=== PATIENT | male | born 1980 | race African-American/Black ===

== ENCOUNTER 2023-11-26 09:28 | Inpatient (IN) | payer BC ==
[2023-11-26] VITALS (15 sets, daily range): BP systolic 107–161; BP diastolic 76–119; PULSE 121–145; RESP 16–30; TEMP 97.7
[~2023-11-26] VITALS: Ht 177.8 cm; Wt 76.3 kg
[2023-11-26] MEDS: LACTATED RINGERS 1,000 ML IV SCH (10:34)
[2023-11-26 10:43] LABS: HEMATOCRIT. 52.4 % (42.0-52.0); HEMOGLOBIN. 16.2 g/dL (14.0-18.0); MEAN CORPUSCULAR HEMOGLOBIN 30.9 pg (28.0-32.0); MEAN CORPUSCULAR HGB CONC 30.9 g/dL (31.0-37.0); MEAN CORPUSCULAR VOLUME 100.1 fL (80.0-94.0); MEAN PLATELET VOLUME 10.4 fl (7.4-10.4); PLATELET 432 x1000/uL (130-400); RED BLOOD CELL COUNT 5.23 mill/uL (4.7-6.1); RED CELL DISTRIBUTION WIDTH 16.1 % (11.6-14.6); WHITE BLOOD COUNT 15.6 x1000/uL (4.5-11.0)
[2023-11-26 10:49] LABS: ALANINE AMINOTRANSFERASE 31 IU/L (10-49); ALBUMIN 5.1 g/dL (3.2-4.8); ASPARTATE AMINOTRANSFERASE 14 IU/L (<34); BILIRUBIN TOTAL 0.3 mg/dL (0.1-1.0); CALCIUM 8.9 mg/dL (8.7-10.4); CHLORIDE 102 mEq/L (98-107); CREATININE 1.8 mg/dL (0.6-1.3); SODIUM 134 mEq/L (136-145); TROPONIN I HIGH SENSITIVITY 6 ng/L (3.0-53); UREA NITROGEN BLOOD 20 mg/dL (9-23)
[2023-11-26 10:54] LABS: CARBON DIOXIDE < 10 mEq/L (21-32); GLUCOSE 601 mg/dL (70-105)
[2023-11-26 10:59] LABS: DIFFERENTIAL COMMENT 1
[2023-11-26 11:47] LABS: BG BASE EXCESS -25.5 mmol/L (-2.0-2.0); BG CARBOXYHEMOGLOBIN 0.3 % (0.5-1.5); BG DEOXYHEMOGLOBIN 1.7 % (0.0-5.0); BG FRACTION INSPIRED OXYGEN 21; BG METHEMOGLOBIN 0.4 % (0.0-1.5); BG OXYGEN SATURATION 98.3 % (92.0-98.5); BG OXYHEMOGLOBIN 97.6 % (94.0-97.0); BG PCO2 11.4 mmHg (35.0-45.0); BG PH 7.036 (7.350-7.450); BG PO2 153.5 mmHg (75.0-100.0); BG SAMPLE SITE RIGHT RADIAL; BG TOTAL HEMOGLOBIN 17.4 g/dL (12.0-18.0); BG VENT MODE ROOM AIR
[2023-11-26] MEDS ORDERED: LACTATED RINGERS 1,000 ML IV SCH (12:00)
[2023-11-26 12:28] LABS: ANISOCYTOSIS 1+; PLATELET ESTIMATE INCREASED
[2023-11-26 12:43] LABS: CLARITY URINE CLEAR (CLEAR); COLOR URINE YELLOW (YELLOW); GLUCOSE URINE 3+ (NEGATIVE); KETONES URINE 4+ (NEGATIVE); LEUKOCYTE ESTERASE URINE NEGATIVE (NEGATIVE); NITRITE URINE NEGATIVE (NEGATIVE); OCCULT BLOOD URINE 1+ (NEGATIVE); PH URINE 5.5 (4.5-8.0); PROTEIN URINE 2+ (NEGATIVE); UROBILINOGEN URINE 0.2 E.U./dL (0.2-1.0)
[2023-11-26] MEDS ORDERED: BLOOD SUGAR DIAGNOSTIC STRIP TEST SCH (13:00)
[2023-11-26] MEDS ORDERED: KCL 20MEQ/100ML PREMIX 100 ML IV PRN ×2 (13:00→20:00)
[2023-11-26 13:12] LABS: WBC URINE 0-2 /hpf (0-2)
[2023-11-26 13:13] LABS: COARSE GRANULAR CASTS URINE 0-5 /lpf; FINE GRANULAR CASTS URINE 0-5 /lpf; RBC URINE 0-2 /hpf (0-2)
[2023-11-26 13:15] LABS: MUCUS URINE 1+ /lpf (NONE/TRACE)
[2023-11-26] MEDS ORDERED: GUAIFENESIN 200MG/10ML SUGAR FREE UDC PO PRN (13:15)
[2023-11-26] MEDS ORDERED: DOCUSATE SODIUM 100MG CAPSULE PO PRN (13:15)
[2023-11-26] MEDS ORDERED: DEXTROSE 50% WATER 50ML SYRINGE IV PRN ×2 (13:15→20:00)
[2023-11-26] MEDS ORDERED: ACETAMINOPHEN 325MG TABLET PO PRN (13:15)
[2023-11-26] MEDS ORDERED: IPRATROPIUM/ALBUTEROL 0.5-3(2.5)MG/3ML NEB HHN PRN (13:15)
[2023-11-26] MEDS ORDERED: ONDANSETRON HCL 4MG/2ML INJ IV PRN (13:15)
[2023-11-26] MEDS ORDERED: MAGNESIUM/ALUMINUM HYDROXIDE/SIMETHICONE 30ML UDC PO PRN (13:15)
[2023-11-26 13:16] LABS: BACTERIA URINE TRACE; SQUAMOUS EPITHELIAL CELL URINE RARE /lpf (RARE/1+)
[2023-11-26] MEDS ORDERED: DEXT 5%/0.9% NACL 1,000 ML IV SCH (13:30)
[2023-11-26] MEDS: THIAMINE HCL 100MG TABLET PO SCH (13:30)
[2023-11-26] MEDS: SODIUM CHLORIDE 0.9% 1,000 ML IV SCH (13:51)
[2023-11-26] MEDS: BLOOD SUGAR DIAGNOSTIC STRIP TEST SCH ×2 (13:51→20:10)
[2023-11-26] MEDS: INSULIN REGULAR (HUMULIN R) 300UNITS/3ML VIAL IV ONE (13:59)
[2023-11-26] MEDS: PANTOPRAZOLE SODIUM 40 MG/VIAL IV SCH (13:59)
[2023-11-26] MEDS: ENOXAPARIN 40MG/0.4ML SYR SUBCUT SCH (14:00)
[2023-11-26 17:32] LABS: CALCIUM 8.5 mg/dL (8.7-10.4); CHLORIDE 103 mEq/L (98-107); CREATININE 1.8 mg/dL (0.6-1.3); POTASSIUM 4.7 mEq/L (3.5-5.1); SODIUM 134 mEq/L (136-145); UREA NITROGEN BLOOD 19 mg/dL (9-23)
[2023-11-26 17:34] LABS: TROPONIN I HIGH SENSITIVITY 7 ng/L (3.0-53)
[2023-11-26 17:35] LABS: CHLORIDE 102 mEq/L (98-107); POTASSIUM 4.8 mEq/L (3.5-5.1); SODIUM 133 mEq/L (136-145)
[2023-11-26 17:41] LABS: CARBON DIOXIDE < 10 mEq/L (21-32); GLUCOSE 641 mg/dL (70-105)
[2023-11-26 17:42] LABS: CARBON DIOXIDE < 10 mEq/L (21-32)
[2023-11-26] MEDS ORDERED: SODIUM CHL 0.45% + KCL 20MEQ/L 1,000 ML IV SCH (18:30)
[2023-11-26] MEDS ORDERED: SODIUM PHOSPHATE 15 MMOL in SODIUM CHLORIDE 0.9% 245 ML IV PRN (20:00)
[2023-11-26] MEDS ORDERED: SODIUM CHLORIDE 0.9% 1,000 ML IV SCH (20:00)
[2023-11-26] MEDS ORDERED: MAGNESIUM 2 G PREMIX 100 ML IV PRN (20:00)
[2023-11-26] MEDS ORDERED: POTASSIUM CHLORIDE 40 MEQ in SODIUM CHLORIDE 0.9% 230 ML IV PRN (20:00)
[2023-11-26] MEDS: INSULIN REGULAR (DRIP) 100 UNITS in SODIUM CHLORIDE 0.9% 99 ML IV SCH (20:19)
[2023-11-26] MEDS: HYDRALAZINE 20MG/ML VIAL IV PRN (20:23)
[2023-11-26] MEDS: MELATONIN 3MG TABLET PO SCH (21:52)
[2023-11-26] MEDS: INSULIN REGULAR 100U/100ML PMX 100 ML IV SCH (22:32)
[2023-11-26] MEDS ORDERED: INSULIN REGULAR 100U/100ML PMX 100 ML IV SCH (22:42)
[2023-11-26 23:26] LABS: CHLORIDE 114 mEq/L (98-107); CREATININE 1.3 mg/dL (0.6-1.3); POTASSIUM 4.6 mEq/L (3.5-5.1); SODIUM 139 mEq/L (136-145); UREA NITROGEN BLOOD 26 mg/dL (9-23)
[2023-11-26 23:46] LABS: ETHANOL BLOOD < 10 mg/dL (<10); GLUCOSE 212 mg/dL (70-105)
[2023-11-26 23:49] LABS: CARBON DIOXIDE < 10 mEq/L (21-32)
[2023-11-26] MEDS: IOHEXOL-350 100 ML BOTTLE ONE (23:51)
[2023-11-27] VITALS (39 sets, daily range): BP systolic 106–151; BP diastolic 71–109; PULSE 83–128; RESP 14–22; TEMP 97.7–99.4
[2023-11-27 00:58] LABS: PHOSPHORUS 1.2 mg/dL (2.5-4.9)
[2023-11-27 01:15] LABS: TROPONIN I HIGH SENSITIVITY 19 ng/L (3.0-53)
[2023-11-27 01:33] LABS: CARBON DIOXIDE 11 mEq/L (21-32); CHLORIDE 117 mEq/L (98-107); CREATININE 1.2 mg/dL (0.6-1.3); GLUCOSE 179 mg/dL (70-105); POTASSIUM 4.5 mEq/L (3.5-5.1); SODIUM 139 mEq/L (136-145); UREA NITROGEN BLOOD 30 mg/dL (9-23)
[2023-11-27 01:36] LABS: CARBON DIOXIDE 10 mEq/L (21-32); CHLORIDE 116 mEq/L (98-107); POTASSIUM 4.4 mEq/L (3.5-5.1); SODIUM 139 mEq/L (136-145)
[2023-11-27] MEDS: METOCLOPRAMIDE HCL 10MG/2ML VIAL IV SCH (01:46)
[2023-11-27] MEDS: SODIUM PHOSPHATE 30 MMOL in DEXT 5% WATER 490 ML IV NR (03:10)
[2023-11-27] MEDS: DEXT 5%/0.9% NACL 1,000 ML IV SCH (07:55)
[2023-11-27 08:51] LABS: CALCIUM 8.8 mg/dL (8.7-10.4); CARBON DIOXIDE 14 mEq/L (21-32); CHLORIDE 117 mEq/L (98-107); CHOLESTEROL 130 mg/dL (<200); CREATININE 1.1 mg/dL (0.6-1.3); GLUCOSE 214 mg/dL (70-105); HDL CHOLESTEROL 51 mg/dL (>55); LDL CHOLESTEROL 64 mg/dL (5-100); PHOSPHORUS 2.5 mg/dL (2.5-4.9); SODIUM 139 mEq/L (136-145); THYROID STIMULATING HORMONE 0.78 uIU/mL (0.55-4.78); TRIGLYCERIDE 63 mg/dL (0-150); UREA NITROGEN BLOOD 23 mg/dL (9-23)
[2023-11-27] MEDS: DEXT 5%/0.9% NACL KCL 20MEQ/L 1,000 ML IV SCH (10:32)
[2023-11-27] MEDS: CLONIDINE 0.1MG TABLET PO PRN (12:20)
[2023-11-27 12:53] LABS: CALCIUM 8.7 mg/dL (8.7-10.4); CARBON DIOXIDE 16 mEq/L (21-32); CHLORIDE 117 mEq/L (98-107); GLUCOSE 196 mg/dL (70-105); POTASSIUM 3.8 mEq/L (3.5-5.1); SODIUM 141 mEq/L (136-145); UREA NITROGEN BLOOD 21 mg/dL (9-23)
[2023-11-27 15:55] LABS: CALCIUM 8.5 mg/dL (8.7-10.4); CARBON DIOXIDE 15 mEq/L (21-32); CHLORIDE 120 mEq/L (98-107); CREATININE 0.9 mg/dL (0.6-1.3); GLUCOSE 163 mg/dL (70-105); POTASSIUM 3.9 mEq/L (3.5-5.1); SODIUM 143 mEq/L (136-145); UREA NITROGEN BLOOD 17 mg/dL (9-23)
[2023-11-27] MEDS ORDERED: DEXTROSE 50% WATER 50ML SYRINGE IV PRN (16:30)
[2023-11-27] MEDS: INSULIN GLARGINE 100 UNITS/ML SUBCUT NR (16:53)
[2023-11-27] MEDS: BLOOD SUGAR DIAGNOSTIC STRIP TEST SCH (17:52)
[2023-11-27] MEDS: INSULIN LISPRO 100 UNITS/ML SUBCUT SCH ×2 (17:53→17:54)
[2023-11-27 18:29] LABS: BASOPHILS % 0.7 % (0.0-2.0); HEMATOCRIT. 38.6 % (42.0-52.0); HEMOGLOBIN. 12.5 g/dL (14.0-18.0); LYMPHOCYTES % 10.6 % (20.0-50.0); MEAN CORPUSCULAR HEMOGLOBIN 30.9 pg (28.0-32.0); MEAN CORPUSCULAR HGB CONC 32.4 g/dL (31.0-37.0); MEAN CORPUSCULAR VOLUME 95.4 fL (80.0-94.0); MEAN PLATELET VOLUME 9.9 fl (7.4-10.4); MONOCYTES % 8.6 % (2.0-8.0); NEUTROPHILS % 80.1 % (40.0-76.0); PLATELET 301 x1000/uL (130-400); RED BLOOD CELL COUNT 4.05 mill/uL (4.7-6.1); RED CELL DISTRIBUTION WIDTH 14.8 % (11.6-14.6); WHITE BLOOD COUNT 14.5 x1000/uL (4.5-11.0)
[2023-11-27 18:44] LABS: CARBON DIOXIDE 15 mEq/L (21-32); CHLORIDE 116 mEq/L (98-107); SODIUM 141 mEq/L (136-145); UREA NITROGEN BLOOD 15 mg/dL (9-23)
[2023-11-27 18:45] LABS: PHOSPHORUS 2.1 mg/dL (2.5-4.9)
[2023-11-27 18:47] LABS: GLUCOSE 343 mg/dL (70-105)
[2023-11-27 22:12] LABS: CALCIUM 8.6 mg/dL (8.7-10.4); CARBON DIOXIDE 17 mEq/L (21-32); CHLORIDE 120 mEq/L (98-107); GLUCOSE 221 mg/dL (70-105); POTASSIUM 3.7 mEq/L (3.5-5.1); SODIUM 143 mEq/L (136-145); UREA NITROGEN BLOOD 17 mg/dL (9-23)
[2023-11-28] VITALS (29 sets, daily range): BP systolic 120–163; BP diastolic 62–106; PULSE 18–101; RESP 12–19; TEMP 97.6–99.3
[2023-11-28 06:12] LABS: CARBON DIOXIDE 17 mEq/L (21-32); CHLORIDE 119 mEq/L (98-107); CREATININE 0.9 mg/dL (0.6-1.3); GLUCOSE 220 mg/dL (70-105); POTASSIUM 3.8 mEq/L (3.5-5.1); SODIUM 145 mEq/L (136-145); UREA NITROGEN BLOOD 14 mg/dL (9-23)
[2023-11-28] MEDS: INSULIN GLARGINE 100 UNITS/ML SUBCUT SCH (09:29)
[2023-11-28] MEDS ORDERED: INSULIN GLARGINE 100 UNITS/ML SUBCUT SCH (10:00)
[2023-11-28] MEDS: INSULIN LISPRO 100 UNITS/ML SUBCUT SCH ×2 (12:30)
[2023-11-28] MEDS ORDERED: HYDRALAZINE 10 MG in SODIUM CHLORIDE 0.9% 49.5 ML IV PRN (12:45)
[2023-11-28 17:15] LABS: PHOSPHORUS 2.1 mg/dL (2.5-4.9)
[2023-11-29] VITALS: BP 115/65; PULSE 87; RESP 18; TEMP 99.1
[2023-11-29 04:00] VITALS: BP 137/83; PULSE 101; RESP 18; TEMP 96.3
[2023-11-29 07:11] LABS: ALANINE AMINOTRANSFERASE 29 IU/L (10-49); ALBUMIN 3.5 g/dL (3.2-4.8); ASPARTATE AMINOTRANSFERASE 33 IU/L (<34); BILIRUBIN TOTAL 0.4 mg/dL (0.1-1.0); CALCIUM 8.4 mg/dL (8.7-10.4); CARBON DIOXIDE 21 mEq/L (21-32); CHLORIDE 113 mEq/L (98-107); CREATININE 0.8 mg/dL (0.6-1.3); GLUCOSE 216 mg/dL (70-105); POTASSIUM 3.6 mEq/L (3.5-5.1); PROTEIN TOTAL 5.9 g/dL (6.0-8.3); SODIUM 139 mEq/L (136-145); UREA NITROGEN BLOOD 9 mg/dL (9-23)
[2023-11-29 07:35] LABS: BASOPHILS % 0.5 % (0.0-2.0); EOSINOPHILS % 0.7 % (0.0-5.0); HEMATOCRIT. 36.9 % (42.0-52.0); HEMOGLOBIN. 12.1 g/dL (14.0-18.0); LYMPHOCYTES % 35.9 % (20.0-50.0); MEAN CORPUSCULAR HEMOGLOBIN 30.9 pg (28.0-32.0); MEAN CORPUSCULAR HGB CONC 32.8 g/dL (31.0-37.0); MEAN CORPUSCULAR VOLUME 94.4 fL (80.0-94.0); MEAN PLATELET VOLUME 10.6 fl (7.4-10.4); MONOCYTES % 9.5 % (2.0-8.0); NEUTROPHILS % 53.4 % (40.0-76.0); PLATELET 256 x1000/uL (130-400); RED BLOOD CELL COUNT 3.91 mill/uL (4.7-6.1); RED CELL DISTRIBUTION WIDTH 15.2 % (11.6-14.6); WHITE BLOOD COUNT 9.2 x1000/uL (4.5-11.0)
[2023-11-29 08:00] VITALS: BP 121/78; PULSE 62; RESP 18; TEMP 97.6
[2023-11-29] MEDS ORDERED: LANTUSUD SUBCUT (10:44)
[2023-11-29] MEDS ORDERED: METO5TAB86 PO (10:44)
[2023-11-29] MEDS ORDERED: INSLIS SUBCUT (10:44)
[2023-11-29] MEDS: INSULIN GLARGINE 100 UNITS/ML SUBCUT SCH (10:54)
[2023-11-29 11:13] VITALS: BP 121/78; PULSE 62; TEMP 97; O2SAT 98
[2023-11-29 12:00] VITALS: BP 151/88; PULSE 68; RESP 18; TEMP 97.3
== END 2023-11-29 13:15 | disposition home health service (06) | DRG 638 ==
LOC: ER 09:28 → EDBEDREQ 13:06 → EDBEDREQTM 13:06 → EDBEDREQSVC 13:06 → CVICU 19:28 → 4WST 11-28 12:30
PROVIDERS: ADMIT Internal Medicine; ATTEND Internal Medicine
DX: E10.10 Type 1 diabetes mellitus with ketoacidosis without coma (principal); N17.9 Acute kidney failure, unspecified; E86.0 Dehydration; R74.8 Abnormal levels of other serum enzymes; E83.41 Hypermagnesemia; E83.39 Other disorders of phosphorus metabolism; N18.9 Chronic kidney disease, unspecified; K31.84 Gastroparesis; R03.0 Elevated blood-pressure reading, without diagnosis of hypertension; E83.42 Hypomagnesemia; D72.0 Genetic anomalies of leukocytes; E10.43 Type 1 diabetes mellitus with diabetic autonomic (poly)neuropathy; F17.210 Nicotine dependence, cigarettes, uncomplicated; Z79.4 Long term (current) use of insulin; Z82.3 Family history of stroke; Z83.3 Family history of diabetes mellitus
CPT/HCPCS: 36415; 36600; 71045; 71275; 74177; 80048; 80051; 80053; 80061; 80320; 81003; 82010; 82375; 82805; 82962; 83036; 83605; 83735; 83880; 83930; 84100; 84439; 84443; 84484; 85025; 93005; 99291; C9113; J0360; J1650; J1815; J2765; J3480; J3490; J7030; J7050; J7060; Q9967; G0480